=== PATIENT | female | born 1965 | race Caucasian/White ===

== ENCOUNTER 2023-06-28 00:13 | Emergency (ER) | payer MEDICAID ==
[~2023-06-28] VITALS: Ht 162.6 cm; Wt 90.7 kg
[2023-06-28 01:11] VITALS: BP_SYST 164; PULSE 80; RESP 18; TEMP 98.3; O2SAT 99
[2023-06-28] MEDS ORDERED: ACETAMINOPHEN 500 MG TABLET PO ONE (03:00)
[2023-06-28] MEDS ORDERED: DIAZEPAM 5 MG TABLET (VALIUM) PO ONE (03:00)
[2023-06-28] MEDS ORDERED: KETOROLAC TROMETHAMINE 30 MG VIAL IM ONE (03:00)
[2023-06-28 04:37] VITALS: BP_SYST 141; PULSE 82; RESP 20; TEMP 98.3; O2SAT 95
== END 2023-06-28 04:37 | disposition home or self-care (01) ==
LOC: SED 00:13
DX: M62.830 Muscle spasm of back (principal); M54.50 Low back pain, unspecified
CPT/HCPCS: 99283; 96372; J1885